=== PATIENT | female | born 1985 | race Two or more races ===

== ENCOUNTER 2020-09-06 16:35 | Emergency (ER) | payer BC ==
[~2020-09-06] VITALS: Ht 162.6 cm; Wt 127.0 kg
== END 2020-09-06 23:08 | disposition home or self-care (01) ==
LOC: ER 16:35
DX: N20.2 Calculus of kidney with calculus of ureter (principal); K43.9 Ventral hernia without obstruction or gangrene; K44.9 Diaphragmatic hernia without obstruction or gangrene; N39.0 Urinary tract infection, site not specified; R31.29 Other microscopic hematuria